=== PATIENT | female | born 1985 | race Caucasian/White ===

== ENCOUNTER → 2021-08-27 10:21 | Outpatient (CLI) | payer OTHER, SELFPAY ==
[2021-08-27 11:49] LABS: COVID19 -Nasal RAPID Negative (Negative)
== END ==
PROVIDERS: PCP Family Medicine; Visit Provider Nurse Practitioner Family
DX: Z20.822 Contact with and (suspected) exposure to COVID-19 (principal)
CPT/HCPCS: 87635; C9803

== ENCOUNTER 2021-08-28 10:04 | Day surgery (SDC) | payer OTHER, SELFPAY ==
[2021-08-26 08:08] VITALS: BMI 34.3
[2021-08-28 10:28] VITALS: BP 112/73; PULSE 105; RESP 18; TEMP 36.2; O2SAT 99; BMI 34.3
[2021-08-28] MEDS: OXYMETAZOLINE NASAL SPRAY 15 ML 2 SPRAYS NASAL ×2 (10:37→11:59)
--- NOTE | 2021-08-28 10:52 | P.HP_ITS ---
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 She was last seen in clinic 06/10/2021, no interval health changes, no recent cough, cold, or fever. Patient History Medical History Allergies Asthma Nasal congestion Nasal obstruction Nasal septal deviation Surgical History Hx of reduction mammoplasty (2001) Family & Social History Social History: household members spouse Tobacco & Substance use: Smoking Status Never smoker alcohol intake current alcohol intake frequency other Substance Use Type does not use Meds Home Medications and Allergies Home Medications Medication Instructions Recorded Confirmed Type albuterol sulfate 90 mcg/actuation 1 - 2 inh INHALATION DIRECTED 08/26/21 08/26/21 History aerosol inhaler (ProAir HFA) cetirizine 10 mg tablet (Zyrtec) 10 mg PO DAILY 08/26/21 08/28/21 History meloxicam 7.5 mg tablet 7.5 mg PO DAILY 08/26/21 08/28/21 History Allergies Allergy/AdvReac Type Severity Reaction Status Date / Time almond Allergy Hives Verified 08/26/21 08:13 hazelnut Allergy Hives Verified 08/28/21 10:25 Review of Systems Review of Systems Narrative: Negative except as mentioned in the HPI Exam Vital Signs (past 8 hours): - 08/28/21 10:28 Temperature 97.2 F L Pulse Rate 105 H Respiratory Rate 18 Blood Pressure 112/73 Pulse Oximetry 99 Oxygen Delivery Method Room Air Narrative Exam Narrative: Well-developed well-nourished female in no acute distress. 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 All questions were answered. Time Spent With Patient Critical Care time: I spent a total of [] minutes of critical care time on this patient's care today; this time is exclusive of procedural time.
--- NOTE | 2021-08-28 10:52 | PM.PREOP ---
Pre-operative Note Interval Note History & Physical reviewed/Exam performed by Physician: Yes Changes to H&P: No
--- NOTE | 2021-08-28 10:54 | P.OP_ITS ---
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 Septoplasty 2. Bilateral inferior turbinate reduction via intramural cautery 3. Bilateral maribell bullosa resection, endoscopic Same procedure as scheduled: Yes Indications: 36-year-old female with the above diagnoses incompletely managed with medical therapy presents for the above procedures. Following discussion of the material risks benefits complications and alternatives, the patient elected to proceed. Surgeon: Alejandro Fan Click Yes if Unassisted: Yes Anesthesia Type: General and Local Operative Notes Findings: 2 to 3+ right septal deviation, left greater than right inferior AND middle turbinate hypertrophy. Healthy mucosa within maribell bullosa. Estimated Blood Loss (mL): 40 Procedure in detail: Following identification and confirmation of consent as well as preoperative Afrin nasal spray, the patient was brought to the operating room suite and placed in the supine position. General endotracheal anesthesia was administered. I infiltrated the septum widely bilaterally with 1% lidocaine 1 100,000 epinephrine followed by temporary packing with cotton with Afrin and 4% lidocaine. Following sterile prep and drape, the packing was removed and I performed a right nick-transfixion incision, elevated the right mucop erichondrial and mucoperiosteal flap. I disarticulated near the bony/cartilaginous junction and elevated the left mucoperiosteal flap. Deviated portions of the perpendicular plate of the ethmoid and vomer were resected. The residual quadrilateral cartilage was further straightened by trimming it inferiorly as well as reducing the maxillary crest. A 2 mm strip of cartilage paralleling the residual 1 cm dorsal and caudal strut was resected to further straighten the quadrilateral cartilage. The hemitransfixion incision was closed with interrupted 5 0 chromic followed by a running 4 0 plain gut mattress suture to reapproximate the septal flaps. At case completion, 20/1000th of an inch silastic splints were placed bilaterally, sutured anteriorly with a single 4 0 nylon. The head of each inferior turbinate had been previously infiltrated with additional local anesthetic and a 25 gauge spinal needle was used to impale the length of the turbinate, with cautery on a setting of 15 activated on slow withdrawal over 2 passes. The turbinates were then outfractured. Each middle turbinate was infiltrated at its anterior and posterior insertion with additional local anesthetic endoscopically. The microdebrider was to used resect the lateral portion of each middle turbinate, removing the lateral wall of the maribell bullosa and increasing the nasal airway and middle meatus. Sinus mucosa was healthy. The procedure completed, sponge and needle counts were correct and the patient was extubated in the operating room and taken to recovery room in stable condition without known complication. Postoperative care: Nasal saline every hour while awake, Vaseline or Polysporin to the nostrils at all times, begin irrigations t.i.d. beginning pod 1. Humidifier at the bedside blowing on the face. Tylenol alternating with Advil for pain control, oxycodone if necessary for breakthrough pain. Complications: none Post-operative Condition: stable Disposition: same day surgery Plan for aftercare: Nasal saline every hour while awake, begin irrigations t.i.d. tomorrow. Polysporin to the nostrils at all times, Tylenol alternating with Advil for pain control, oxycodone for breakthrough pain. Elevate head of bed, no nose blowing, no straining for 2 weeks. Follow-up in 1 week for nasal splint removal.
[2021-08-28] MEDS: LACTATED RINGERS 1,000 ML 42 ML IV (11:04)
--- NOTE | 2021-08-28 11:55 | SUR.OPER ---
Supine on padded OR bed, head on gel donut, arms padded and tucked at sides, legs uncrossed, safety belt at thigh, tape over blanket over lower legs .
[2021-08-28] MEDS: LIDOCAINE 4% SOLN 50 ML 20 ML TOP (11:58)
[2021-08-28] MEDS: LIDOCAINE 1% W/EPI 20 ML INJ (11:58)
[2021-08-28] MEDS: BACITRACIN 28 GM OINT 1 APPLIC TOP (11:59)
[2021-08-28 12:30] VITALS: BP 117/73; PULSE 89; RESP 15; TEMP 36.9; O2SAT 97
[2021-08-28 12:45] VITALS: BP 110/59; PULSE 85; RESP 15; O2SAT 98
[2021-08-28 12:50] VITALS: BP 106/59; PULSE 84; RESP 15; O2SAT 98
[2021-08-28] MEDS: OXYCODONE/ACETAMINOPHEN 5/325 TABLET 1 TAB PO (12:52)
[2021-08-28 12:55] VITALS: BP 105/61; PULSE 85; RESP 15; O2SAT 98
--- NOTE | 2021-08-28 14:14 | SUR.PHASEII ---
pt care done at 1315 held on unit until patients ride home arrived.
== END 2021-08-28 13:45 | disposition home or self-care (01) ==
PROVIDERS: PCP Family Medicine; Referring Provider Otolaryngology; Visit Provider Otolaryngology
PROC: (CPT 30520; principal; 2021-08-28 11:00)
PROC: (CPT 31231; 2021-08-28 11:00)
DX: J34.2 Deviated nasal septum (principal); J34.89 Other specified disorders of nose and nasal sinuses; J34.3 Hypertrophy of nasal turbinates; J45.909 Unspecified asthma, uncomplicated
CPT/HCPCS: 30520; 31240; 30140; 81025; A9270; J1100; J2250; J2405; J2704; J3010